=== PATIENT | male | born 1950 | race Caucasian/White ===

== ENCOUNTER → 2016-05-31 | Outpatient (CLI) | payer MEDICARE ==
[~2016-05-31] MED LIST: HYDR-3533 PO; TYLE500T PO
[2016-05-31 13:34] LABS: ALKALINE PHOSPHATASE 162 U/L (45-117); ALT (GPT) 143 U/L (12-78); ANION GAP 8 MEQ/L (5-15); AST (GOT) 221 U/L (15-37); BICARBONATE 28.6 MEQ/L (21.0-32.0); BLOOD UREA NITROGEN 16 MG/DL (7-18); CHLORIDE 104 MEQ/L (98-107); GLOMERULAR FILTRATION RATE 102 ML/MIN (>89); GLUCOSE,FASTING 142 MG/DL (74-99); HDL CHOLESTEROL 94.5 MG/DL (40.0-60.0); LDL CHOLESTEROL 149 MG/DL (0-99); POTASSIUM 4.3 MEQ/L (3.5-5.1); SODIUM (NA) 141 MEQ/L (136-145); TOTAL BILIRUBIN ADULT 0.8 MG/DL (0.2-1.0)
[2016-05-31 17:06] LABS: HEMOGLOBIN A1a 1.1 %; HEMOGLOBIN A1b 1.4 %; HEMOGLOBIN Ao 84.9 %; HEMOGLOBIN LA1C 2.4 %; HEMOGLOBIN P3 3.8 %
== END ==
LOC: PLAB 09:09
PROVIDERS: ATTEND Family Medicine
DX: E78.5 Hyperlipidemia, unspecified (principal); I10 Essential (primary) hypertension; R73.01 Impaired fasting glucose; Z68.36 Body mass index [BMI] 36.0-36.9, adult
CPT/HCPCS: 36415; 80053; 80061; 83036